=== PATIENT | male | born 1955 | race African-American/Black ===

== ENCOUNTER 2017-09-30 01:52 | Emergency (ER) | payer OTHER, MEDICAID ==
--- NOTE | 2017-09-30 03:00 | ER Document Report ---
ED Seizure - General Chief Complaint: Seizure Stated Complaint: POSSIBLE SEIZURE Time Seen by Provider: 09/30/17 02:58 Mode of Arrival: Medic Information source: Patient Notes: 62-year-old male presents to the emergency department by EMS for seizure activity. Per EMS, the patient was sleeping next to his when she heard him breathing loudly. She looked over and noticed that his teeth were clenched , he was stiff and shaking. The does not remember how long the seizure lasted for. Patient does have a history of seizures. He has not been on his medication in the last month. Patient and are unsure what the medication that he was taking is called. In the emergency department, the patient is awake , alert, oriented 3. He has no complaints. - HPI Patient complains to provider of: History of seizures Quality of pain: No pain Severity: None Pain Level: Denies Continued on arrival to ED: No Can details of seizure be obtained/verified: Yes Episode witnessed (by whom): Yes - Character of seizure: Generalized shaking Post-ictal symptoms: Confusion Injuries: None Associated Symptoms: None - Related Data Allergies/Adverse Reactions: No Known Allergies Allergy (Verified 09/30/17 02:59) Past Medical History - Social History Smoking Status: Current Every Day Smoker Frequency of alcohol use: None Family History: Reviewed & Not Pertinent Patient has suicidal ideation: No Patient has homicidal ideation: No - Past Medical History Cardiac Medical History: Reports: Hx Hypertension Neurological Medical History: Reports: Hx Seizures Renal/ Medical History: Denies: Hx Peritoneal Dialysis Review of Systems - Review of Systems Constitutional: No symptoms reported EENT: No symptoms reported Cardiovascular: No symptoms reported Respiratory: No symptoms reported Gastrointestinal: No symptoms reported Genitourinary: No symptoms reported Male Genitourinary: No symptoms reported Musculoskeletal: No symptoms reported Skin: No symptoms reported Hematologic/Lymphatic: No symptoms reported Neurological/Psychological: Seizure Physical Exam - Vital signs Vitals: Resp Pulse Ox 13 94 09/30/17 02:11 09/30/17 02:11 - Notes Notes: PHYSICAL EXAMINATION: GENERAL: Well-appearing, well-nourished and in no acute distress. HEAD: Atraumatic, normocephalic. EYES: Pupils equal round and reactive to light, extraocular movements intact, sclera anicteric, conjunctiva are normal. ENT: Nares patent, oropharynx clear without exudates. Moist mucous membranes. Left sided tongue bite anastasia. NECK: Normal range of motion, supple without lymphadenopathy LUNGS: Breath sounds clear to auscultation bilaterally and equal. No wheezes rales or rhonchi. HEART: Regular rate and rhythm without murmurs ABDOMEN: Soft, nontender, nondistended abdomen. No guarding, no rebound. No masses appreciated. Musculoskeletal: Normal range of motion, no pitting or edema. No cyanosis. NEUROLOGICAL: Cranial nerves grossly intact. Normal speech, normal gait. Normal sensory, motor exams PSYCH: Normal mood, normal affect. SKIN: Warm, Dry, normal turgor, no rashes or lesions noted. Course - Re-evaluation Re-evalutation: 09/30/17 05:27 Patient given keppra in the ED. Labs obtained. Potassium low. Given KCL. Creatinine is elevated. Fluid bolus started. Patient has no complaints. I will discharge home. I will give rx for keppra. Patient told to take medication as directed, to follow up with PCP this week, and to return for worsening symptoms. - Vital Signs Vital signs: Temp Pulse Resp BP Pulse Ox 16 177/120 H 94 09/30/17 05:01 09/30/17 05:00 09/30/17 05:01 - Laboratory Result Diagrams: 09/30/17 01:39 09/30/17 01:39 Laboratory results interpreted by me: 09/30/17 09/30/17 09/30/17 01:39 01:39 04:55 WBC 12.0 H RDW 15.2 H Absolute Lymphocytes 4.8 H Sodium 148.8 H Potassium 3.1 L Carbon Dioxide 20 L Anion Gap 27 H Creatinine 1.81 H Est GFR ( Amer) 47 L Est GFR (Non-Af Amer) 38 L ALT 20 L Urine Protein 100 H Urine Blood MODERATE H Discharge - Discharge Clinical Impression: Seizure, Hypokalemia Acute renal failure Qualifiers: Acute renal failure type: unspecified Qualified Code(s): N17.9 - Acute kidney failure, unspecified Condition: Good Disposition: HOME, SELF-CARE Instructions: Seizure, 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
[2017-09-30] MEDS ORDERED: CLONIDINE HCL 0.1 MG TABLET PO ONE (03:14)
[2017-09-30] MEDS ORDERED: LEVETIRACETAM 500 MG TABLET PO ONE (03:14)
[2017-09-30 03:59] LABS: ABSOLUTE BASOPHILS # (AUTO) 0.1 10^3/uL (0.0-0.2); ABSOLUTE EOSINOPHILS # (AUTO) 0.3 10^3/uL (0.0-0.6); ABSOLUTE LYMPHOCYTES (AUTO) 4.8 10^3/uL (0.5-4.7); ABSOLUTE MONOCYTES (AUTO) 1.2 10^3/uL (0.1-1.4); ABSOLUTE NEUT (AUTO) 5.5 10^3/uL (1.7-8.2); BASOPHILS % (AUTO) 0.6 % (0-2); EOSINOPHILS % (AUTO) 2.7 % (0-6); HEMATOCRIT 48.3 % (37.9-51.0); HEMOGLOBIN 16.4 g/dL (13.5-17.0); MEAN CORPUSCULAR HEMOGLOBIN 31.8 pg (27.0-33.4); MEAN CORPUSCULAR HGB CONC 33.8 g/dL (32.0-36.0); MEAN CORPUSCULAR VOLUME 94 fl (80-97); MONOCYTES % (AUTO) 10.4 % (3-13); PLATELET COUNT 330 10^3/uL (150-450); RED BLOOD COUNT 5.14 10^6/uL (4.35-5.55); RED CELL DISTRIBUTION WIDTH 15.2 % (11.5-14.0); SEGMENTED NEUTROPHILS % (AUTO) 46.3 % (42-78); TOTAL CELLS COUNTED % (AUTO) 100 %
[2017-09-30 04:20] LABS: ALANINE AMINOTRANSFERASE 20 U/L (21-72); ALBUMIN 4.9 g/dL (3.5-5.0); ALKALINE PHOSPHATASE 57 U/L (38-126); ASPARTATE AMINO TRANSFERASE 51 U/L (17-59); BILIRUBIN,DIRECT 0.4 mg/dL (0.0-0.4); BILIRUBIN,TOTAL 0.4 mg/dL (0.2-1.3); BLOOD UREA NITROGEN 15 mg/dL (7-20); CALCIUM 9.7 mg/dL (8.4-10.2); GLUCOSE 106 mg/dL (75-110); POTASSIUM 3.1 mmol/L (3.6-5.0); TOTAL PROTEIN 8.2 g/dL (6.3-8.2)
[2017-09-30 04:25] LABS: CARBON DIOXIDE 20 mmol/L (22-30); CHLORIDE 102 mmol/L (98-107); SODIUM 148.8 mmol/L (137-145)
[2017-09-30 04:28] LABS: ANION GAP 27 (5-19)
[2017-09-30] MEDS ORDERED: NORMAL SALINE 1000 ML 1,000 ML IV ONE (04:35)
[2017-09-30 05:13] LABS: APPEARANCE,URINE CLEAR; BILIRUBIN,URINE NEGATIVE (NEGATIVE); COLOR,URINE YELLOW; GLUCOSE, URINE NEGATIVE (NEGATIVE); KETONES,URINE NEGATIVE (NEGATIVE); LEUKOCYTE ESTERASE,URINE NEGATIVE (NEGATIVE); NITRITE,URINE NEGATIVE (NEGATIVE); PROTEIN,URINE 100 mg/dL (NEGATIVE); URINE SPECIFIC GRAVITY 1.013; UROBILINOGEN,URINE NEGATIVE mg/dL (<2.0)
[2017-09-30] MEDS ORDERED: POTASSIUM CHLORIDE 10 MEQ CAPSULE.ER PO ONE (05:28)
[2017-09-30] MEDS ORDERED: HYDRALAZINE HCL INJ/PF 20 MG/1 ML SDV IV ONE (05:30)
[2017-09-30 05:32] LABS: URINE AMPHETAMINES SCREEN NEGATIVE; URINE BARBITURATES SCREEN NEGATIVE; URINE BENZODIAZEPINES SCREEN NEGATIVE; URINE COCAINE SCREEN NEGATIVE; URINE MARIJUANA (THC) SCREEN UNCONFIRMED POSITIVE; URINE METHADONE SCREEN NEGATIVE; URINE PHENCYCLIDINE SCREEN NEGATIVE
[2017-09-30 06:10] VITALS: BP 134/87
== END 2017-09-30 06:22 | disposition home or self-care (01) ==
LOC: ER 01:52
DX: G40.909 Epilepsy, unspecified, not intractable, without status epilepticus (principal); E87.6 Hypokalemia; N17.9 Acute kidney failure, unspecified; F17.200 Nicotine dependence, unspecified, uncomplicated
CPT/HCPCS: 99284; 96361; 96374; 36415; 85025; 80053; 81001; 80307; J0360; J7030